=== PATIENT | female | born 1990 | race Caucasian/White ===

== ENCOUNTER 2018-10-08 19:44 | Emergency (ER) | payer MEDICAID, SELFPAY ==
[2018-10-08 19:46] VITALS: BP 117/72; PULSE 100; RESP 18; TEMP 36.2; O2SAT 100; BMI 23.1
--- NOTE | 2018-10-08 20:30 | ED.RN ---
spoke with Dr. Jarvis at this time for orders
[2018-10-08 20:42] LABS: Bacteria 0 SEEN /hpf (None Seen); Mucous, Urine 0 SEEN /hpf (<or=2+); Red Blood Cells-Urine 0 SEEN /hpf (0-5)
[2018-10-08 20:55] LABS: Color, Urine Yellow (Yellow); Glucose, Dipstick Normal (Normal); Ketone-Dipstick Negative (Negative); Leukocyte Esterase-Dipstick 25 /ul (Negative); Nitrite-Dipstick Negative (Negative); Occult Blood-Urine Negative /ul (Negative); Protein-Dipstick Negative (Negative); Urine Bilirubin Dipstick Negative (Negative); Urine Clarity Clear (Clear); Urine Urobilinogen Normal (Normal)
--- NOTE | 2018-10-08 20:55 | ED.VISSUMM ---
- ER Visit Summary Date of Service: 10/08/18 Chief Complaint: Vaginal itching and discharge, ear pain History of Present Illness: The patient is a 28 F with recent URI symptoms. She describes head congestion, bilateral ear pain, and occasional hoarse voice. She vomited one time last week. She is also complaining of white vaginal discharge started 2 days ago. She is using an [id number] yeast cream. She noted more foul smell yesterday. Patient has never had a pelvic exam. She did start her menstrual cycle approximately 4 days ago. Physical Examination: Vital signs unremarkable. Patient is sitting upright in bed no acute distress. Head neck examination reveals TMs to be clear bilaterally. She has mild posterior pharyngeal drainage. Heart is regular rate and rhythm. Lungs sounds are clear. Abdomen is soft and nontender. examination reveals no discharge. Single digital vaginal exam was performed with no foreign body or discharge. No lesions noted. Test Results: Urinalysis is unremarkable. Urine test negative. GC and chlamydia have been sent and pending. Emergency Department Course and Treatment: Test results discussed with patient. I will refer her to local [facility] for formal pelvic exam and Pap smear. Her upper respiratory symptoms are viral in nature and simply need to run their course. Treatment Plan: [] Disposition: Discharge Impression: 1. Reported vaginal discharge 2. Viral URI This note was generated with [employer] dictation software. It may contain incorrect words, spelling, and punctuation that were not noted in review of the chart prior to signing ED Disposition - Plan for ED Patient: Referrals: Care Physician,No Primary [Primary Care Provider] -
[2018-10-08 20:57] LABS: Internal QC Validated? YES +Cl - CLEAR BKGD; Pregnancy, Urine Negative Negative
[2018-10-08 21:07] LABS: Squamous Epithelial Cells - UA 0-5 SEEN /hpf (5-10); White Blood Cells 0-5 SEEN /hpf (0-5)
[2018-10-08 22:29] LABS: Chlamydia Trachomatis by PCR Negative (Negative); Neisserai gonorrhoeae by PCR Negative (Negative); Probe Check PASS; Sample Adequacy Control PASS; Specimen Processing Control PASS
--- NOTE | 2018-10-08 22:31 | ED.DEP ---
ED Disposition - Plan for ED Patient: Disposition: Home or Assisted Living Instructions: ED URI Viral, ED Pelvic Pain [facility] Referrals: Kim Tao MD [STAFF PHYSICIAN] - 1-2 Weeks
[2018-10-08 22:36] VITALS: RESP 14
== END 2018-10-08 22:40 | disposition home or self-care (01) ==
PROVIDERS: Emergency Provider Emergency Medicine
DX: J06.9 Acute upper respiratory infection, unspecified (principal); N89.8 Other specified noninflammatory disorders of vagina; R30.0 Dysuria
CPT/HCPCS: 81001; 81025; 87491; 87591; 99282